=== PATIENT | female | born 1930 | race Hispanic/Latino ===

== ENCOUNTER 2019-06-20 06:27 | Observation (INO) | payer MEDICARE ==
[2019-06-18 12:33] LABS: BASOPHILS % (AUTO) 0.8 % (0.0-5.0); EOSINOPHILS % (AUTO) 17.1 % (0.0-8.0); HEMATOCRIT 40.4 % (36-48); LYMPHOCYTES % (AUTO) 26.9 % (21.0-51.0); MEAN CORPUSCULAR HEMOGLOBIN 28.2 pg (27.0-33.0); MEAN CORPUSCULAR HGB CONC 31.9 g/dL (32.0-36.0); MEAN CORPUSCULAR VOLUME 88.2 fL (79-99); MONOCYTES % (AUTO) 6.4 % (3.0-13.0); NEUTROPHILS % (AUTO) 48.7 % (40.0-77.0); PLATELET COUNT (AUTO) 200 K/uL (130-400); RED BLOOD CELL COUNT(AUTO) 4.58 MIL/uL (4.00-5.50); RED CELL DISTRIBUTION WIDTH 13.5 % (11.0-15.5); WHITE BLOOD COUNT (AUTO) 8.4 K/uL (4.8-10.8)
[2019-06-18 12:43] VITALS: BP 167/98
[2019-06-18 12:45] LABS: CREATININE 1.9 mg/dL (0.5-1.5); POTASSIUM 3.6 mmol/L (3.5-5.1)
[2019-06-18 12:47] LABS: INR 1.03 (0.85-1.15); PARTIAL THROMBOPLASTIN TIME 28.5 SEC (26.3-35.5); PROTHROMBIN TIME 10.8 SEC (9.6-11.6)
--- NOTE | 2019-06-19 14:40 | NUR ---
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
[~2019-06-20] VITALS: Ht 154.9 cm; Wt 75.6 kg
[2019-06-20] VITALS (12 sets, daily range): BP systolic 90–175; BP diastolic 45–88
[2019-06-20] MEDS: CEFAZOLIN SODIUM 1 GM VIAL IVP SCH (05:00)
[~2019-06-20 06:27] MED LIST: ASPI-555 PO; CARV6.25 PO; CYAN1000I IM; FURO40TA5 PO; ICOS1CAP PO; INSU100V12 SQ; ISOS10TA8 PO; LEVO88TA7 PO; LUBI24CA2 PO; MIRA50TA PO; NITR0.4T50 SL; OLME20TA22 PO; PARO-37 PO; ROSU5TAB12 PO; VITAMIN D3 PO
[2019-06-20] MEDS ORDERED: IODIXANOL 320 MG/ML 100 ML VIAL ONE (10:54)
[2019-06-20] MEDS ORDERED: MIDAZOLAM HCL 1 MG/ML 2ML VIAL ONE ×2 (10:54→12:07)
[2019-06-20] MEDS ORDERED: CEFAZOLIN SODIUM 1 GM VIAL ONE (10:54)
[2019-06-20] MEDS ORDERED: LIDOCAINE HCL 1% MDV 50ML VIAL ONE (10:54)
[2019-06-20] MEDS ORDERED: MEPERIDINE-PF 25 MG/ML SYG ONE ×2 (10:54→12:07)
[2019-06-20] MEDS ORDERED: BUPIVACAINE/PF 0.25% 10ML VIAL IJ ONE (10:55)
[2019-06-20] MEDS ORDERED: THROMBIN-JMI 5000 UNIT/VIAL TP ONE (12:23)
[2019-06-20] MEDS ORDERED: NITROGLYCERIN 0.4 MG SL TAB SL PRN (13:00)
--- NOTE | 2019-06-20 13:21 | NUR ---
ARRIVAL TO FLOOR FROM [employer]. PT IS AAOX3 DENIES CP DENIES SOB. BREATHING PATTERN IS EVEN AND UNLABORED, NO VISIBLE SIGNS OF DISTRESS NOTED. LEFT UPPER CHEST PRESSURE DRESSING IN PLACE, CLEAN AND DRY, LEFT ARM SLING IN PLACE. TELE PACK PLACED ON PATIENT. CALL LIGHT WITHIN REACH.
--- NOTE | 2019-06-20 17:00 | NUR ---
STATUS PT IS AAOX3 RESTING IN BED. LEFT ARM SLING REMAINS IN PLACE LEFT UPPER CHEST DRESSING IN PLACE CLEAN DRY AND INTACT.
[2019-06-20] MEDS: CARVEDILOL 6.25 MG TABLET PO SCH (17:25)
[2019-06-20] MEDS: ISOSORBIDE MONONITRATE 5 MG PO SCH (17:28)
[2019-06-20] MEDS: LOSARTAN 100 MG TABLET PO SCH (17:28)
--- NOTE | 2019-06-20 17:29 | NUR ---
DAUGHTERS REQUESTING PM BP MEDS TO BE GIVEN NOW PATIENT TAKES BP MEDS AT AROUND THIS TIME AT HOME HOME MEDS GIVEN, PM BP MEDS DOCUMENTED IN [employer] "HOME MED TAKEN BY PATIENT"
[2019-06-20] MEDS: TRAMADOL HCL 50 MG TABLET PO PRN (20:04)
[2019-06-20] MEDS ORDERED: ATORVASTATIN CALCIUM 10 MG TABLET PO SCH (21:00)
[2019-06-21 03:00] VITALS: BP 140/64
[2019-06-21] MEDS: CEFAZOLIN SODIUM 1 GM VIAL IVP SCH (05:00)
[2019-06-21 05:29] LABS: BASOPHILS % (AUTO) 0.7 % (0.0-5.0); EOSINOPHILS % (AUTO) 17.2 % (0.0-8.0); HEMATOCRIT 39.5 % (36-48); LYMPHOCYTES % (AUTO) 19.3 % (21.0-51.0); MEAN CORPUSCULAR HEMOGLOBIN 27.8 pg (27.0-33.0); MEAN CORPUSCULAR HGB CONC 31.6 g/dL (32.0-36.0); MONOCYTES % (AUTO) 7.1 % (3.0-13.0); NEUTROPHILS % (AUTO) 55.4 % (40.0-77.0); PLATELET COUNT (AUTO) 173 K/uL (130-400); RED BLOOD CELL COUNT(AUTO) 4.49 MIL/uL (4.00-5.50); RED CELL DISTRIBUTION WIDTH 13.6 % (11.0-15.5); WHITE BLOOD COUNT (AUTO) 8.7 K/uL (4.8-10.8)
[2019-06-21 05:52] LABS: CREATININE 1.7 mg/dL (0.5-1.5); POTASSIUM 3.4 mmol/L (3.5-5.1)
[2019-06-21] MEDS ORDERED: LEVOTHYROXINE 88 MCG TABLET PO SCH (06:30)
[2019-06-21 07:45] VITALS: BP 131/72
[2019-06-21] MEDS ORDERED: ASPIRIN 81 MG EC TAB PO SCH (08:00)
[2019-06-21] MEDS: LOSARTAN 100 MG TABLET PO SCH (08:19)
[2019-06-21] MEDS: CARVEDILOL 6.25 MG TABLET PO SCH (08:20)
[2019-06-21] MEDS: ISOSORBIDE MONONITRATE 5 MG PO SCH (08:29)
[2019-06-21] MEDS ORDERED: **HM**(Mirabegron (Myrbetriq) 50 MG PO SCH (09:00)
[2019-06-21] MEDS ORDERED: PAROXETINE HCL 20 MG TABLET PO SCH (09:00)
[2019-06-21] MEDS ORDERED: INSULIN GLARGINE 100 UNITS/ML 10 ML VIAL SQ SCH (09:00)
[2019-06-21] MEDS ORDERED: **HM**(Icosapent Ethyl (Vascepa) 1 GM PO SCH (09:00)
[2019-06-21] MEDS ORDERED: VITAMIN D3 PO SCH (09:00)
[2019-06-21] MEDS ORDERED: FUROSEMIDE 40 MG TABLET PO SCH (09:00)
[2019-06-21] MEDS: TRAMADOL HCL 50 MG TABLET PO PRN (10:21)
[2019-06-21 11:42] VITALS: BP 141/52
--- NOTE | 2019-06-21 13:49 | NUR ---
DR. Марина BRADLEY IN ROOM SPEAKING WITH PT.
[2019-06-21 15:21] VITALS: BP 134/50
--- NOTE | 2019-06-21 16:46 | NUR ---
HL REMOVED, CATHETER INTACT. DISCHARGE INSTRUCTIONS GIVEN TO PT. AND DAUGHTERS X2 AT BEDSIDE, ALL VERBALIZED UNDERSTANDING. REINFORCED LEFT ARM PRECAUTIONS. DRSG TO LEFT UPPER CHEST CHANGED; STERI-STRIPS LEFT INTACT. NEW NON-ADHERING DRSG APPLIED AND SECURED WITH CLEAR TEGADERM X2. DISCHARGED WITH LEFT ARM SLING IN PLACE.
[2019-06-27] MEDS ORDERED: LUBIPROSTONE 24 MCG CAP PO SCH (09:00)
[2019-07-20] MEDS ORDERED: CYANOCOBALAMIN (VITAMIN B-12) 1000 MCG/ML 1ML VIAL IM SCH (09:00)
== END 2019-06-21 17:00 | disposition home or self-care (01) ==
LOC: DAH 06:27 → DAHIP 06:28 → DAH 06:28 → 2DH 13:29
PROVIDERS: ADMIT Internal Medicine; ATTEND Internal Medicine
DX: I25.5 Ischemic cardiomyopathy (principal); I44.7 Left bundle-branch block, unspecified; I13.0 Hypertensive heart and chronic kidney disease with heart failure and stage 1 through stage 4 chronic kidney disease, or unspecified chronic kidney disease; I50.22 Chronic systolic (congestive) heart failure; E11.22 Type 2 diabetes mellitus with diabetic chronic kidney disease; N18.3 Chronic kidney disease, stage 3 (moderate); E78.5 Hyperlipidemia, unspecified; M19.90 Unspecified osteoarthritis, unspecified site; I25.10 Atherosclerotic heart disease of native coronary artery without angina pectoris; E03.9 Hypothyroidism, unspecified; Z95.810 Presence of automatic (implantable) cardiac defibrillator; Z95.5 Presence of coronary angioplasty implant and graft
CPT/HCPCS: 33225; 33249; 36415 ×2; 71045; 80048 ×2; 82948; 85025 ×2; 85610; 85730; A4215; A4216; A4221; A4222; A4223 ×3; A4606; A4663; C1769; C1882; C1895 ×2; C1900; G0378 ×19; J0690 ×2; J2175 ×2; J2250 ×2; J3490 ×3; Q9967; 96372; 99156; 99157